=== PATIENT | female | born 1995 | race Caucasian/White ===

== ENCOUNTER → 2023-01-30 | Outpatient (CLI) | payer BC ==
[2023-01-30 17:29] LABS: URINE APPEARANCE CLEAR; URINE BILIRUBIN NEGATIVE (NEGATIVE); URINE BLOOD NEGATIVE (NEGATIVE); URINE COLOR YELLOW; URINE GLUCOSE NEGATIVE (NEGATIVE); URINE KETONE NEGATIVE (NEGATIVE); URINE LEUKOCYTE ESTERASE NEGATIVE (NEGATIVE); URINE NITRATE NEGATIVE (NEGATIVE); URINE PROTEIN(semi-quant) NEGATIVE (NEGATIVE); URINE UROBILINOGEN NORMAL (NORMAL)
== END ==
LOC: LAB 16:38
PROVIDERS: Nurse Practitioner
DX: R30.0 Dysuria (principal); R36.9 Urethral discharge, unspecified

== ENCOUNTER → 2023-12-03 | Outpatient (CLI) | payer BC | LOC: LAB 15:49 | DX: Z00.00 Encounter for general adult medical examination without abnormal findings (principal) ==

== ENCOUNTER → 2024-01-27 | Outpatient (CLI) | payer BC | LOC: LAB 17:02 | DX: Z11.3 Encounter for screening for infections with a predominantly sexual mode of transmission (principal) ==